=== PATIENT | female | born 1995 | race American Indian/Alaskan Native ===

== ENCOUNTER 2017-02-25 20:12 | Emergency (ER) | payer SELFPAY ==
[2017-02-25 21:38] LABS: Basophils % (Auto) 0.3 % (0.0-1.8); Eosinophils # (Auto) 0.5 K/mm3 (0.0-0.4); Eosinophils % (Auto) 5.9 % (0.0-4.3); Hematocrit 38.5 % (30.3-42.9); Hemoglobin 12.8 gm/dl (10.1-14.3); Lymphocytes # (Auto) 0.9 K/mm3 (1.2-5.4); Lymphocytes % (Auto) 10.7 % (13.4-35.0); Mean Corpuscular HGB Conc 33 % (30-34); Mean Corpuscular Hemoglobin 28 pg (28-32); Mean Corpuscular Volume 85 fl (79-97); Monocytes % (Auto) 11.1 % (0.0-7.3); Platelet Count 197 K/mm3 (140-440); Red Blood Count 4.52 M/mm3 (3.65-5.03); Red Cell Distribution Width 13.9 % (13.2-15.2)
[2017-02-25 21:58] LABS: BUN/Creatinine Ratio 12; Blood Urea Nitrogen 7 mg/dL (7-17); Calcium 9.4 mg/dL (8.4-10.2); Hemolysis Index 11
--- NOTE | 2017-02-25 23:14 | XRay Report ---
FINAL REPORT EXAM: XR CHEST ROUTINE 2V HISTORY: Shortness of breath TECHNIQUE: 2 views of the chest. PRIORS: None. FINDINGS: The cardiomediastinal silhouette appears normal. The lungs are clear. There is right convex scoliosis centered at T11. IMPRESSION: No evidence of acute cardiopulmonary disease
--- NOTE | 2017-02-26 05:55 | Emergency Department Report ---
ED General Adult HPI - General Chief complaint: Upper Respiratory Infection Stated complaint: COLD SX Time Seen by Provider: 02/26/17 05:34 Source: patient Mode of arrival: Ambulatory Limitations: No Limitations - History of Present Illness Initial comments: Patient here with nonproductive cough and clear rhinorrhea and sore throat anterior chest wall pain from coughing ,she's been sick for 3 days. with body aches, She denies numbness. She denies abdominal pain she denies headache or stiff neck. No photophobia no rash pain or swelling -: Gradual, days(s) Severity scale (0 -10): 4 Associated Symptoms: chest pain, cough. denies: diaphoresis, fever/chills, headaches, malaise, nausea/vomiting, rash, seizure, shortness of breath, syncope , weakness - Related Data Home Medications Medication Instructions Recorded Confirmed Last Taken Ibuprofen [Advil] 01/22/13 01/22/13 01/20/13 Previous Rx's Medication Instructions Recorded Last Taken Type ALBUTEROL Inhaler [ProAir HFA 2 puff IH QID PRN #1 inhalation 02/26/17 Unknown Rx Inhaler] Azithromycin [Zithromax TAB] 500 mg PO QDAY 5 Days tablet 02/26/17 Unknown Rx Ibuprofen [Motrin] 400 mg PO Q8H PRN #20 tablet 02/26/17 Unknown Rx Allergies Allergy/AdvReac Type Severity Reaction Status Date / Time No Known Allergies Allergy Verified 02/25/17 21:04 ED Review of Systems ROS: Stated complaint: COLD SX Other details as noted in HPI Comment: All other systems reviewed and negative Constitutional: denies: diaphoresis, fever, malaise Respiratory: cough. denies: orthopnea, shortness of breath, SOB with exertion, SOB at rest, stridor, wheezing Cardiovascular: denies: palpitations, dyspnea on exertion, orthopnea, edema, syncope, paroxysmal nocturnal dyspnea Gastrointestinal: denies: abdominal pain, nausea, vomiting, diarrhea, constipation, hematemesis, melena, hematochezia Genitourinary: denies: urgency, dysuria, frequency, hematuria, discharge, abnormal menses Musculoskeletal: myalgia. denies: joint swelling, arthralgia Neurological: denies: headache, weakness, numbness, paresthesias, confusion, abnormal gait, vertigo ED Past Medical Hx - Past Medical History Previous Medical History?: Yes Additional medical history: hypoglycemia - Surgical History Past Surgical History?: No - Social History Smoking Status: Never Smoker Substance Use Type: None - Medications Home Medications: Home Medications Medication Instructions Recorded Confirmed Last Taken Type Ibuprofen [Advil] 01/22/13 01/22/13 01/20/13 History ALBUTEROL Inhaler [ProAir HFA 2 puff IH QID PRN #1 inhalation 02/26/17 Unknown Rx Inhaler] Azithromycin [Zithromax TAB] 500 mg PO QDAY 5 Days tablet 02/26/17 Unknown Rx Ibuprofen [Motrin] 400 mg PO Q8H PRN #20 tablet 02/26/17 Unknown Rx ED Physical Exam - General Limitations: No Limitations General appearance: alert - Head Head exam: Present: atraumatic, normocephalic - Eye Eye exam: Present: normal appearance, PERRL, EOMI - ENT ENT exam: Present: mucous membranes moist, TM's normal bilaterally, other ( pharyngeal erythema no mass no exudate no stridor no drooling) - Neck Neck exam: Present: normal inspection. Absent: tenderness, meningismus - Respiratory Respiratory exam: Present: normal lung sounds bilaterally, chest wall tenderness. Absent: respiratory distress, wheezes, rales, rhonchi, stridor, accessory muscle use, decreased breath sounds, prolonged expiratory - Cardiovascular Cardiovascular Exam: Present: regular rate, normal rhythm, normal heart sounds. Absent: rubs, gallop - GI/Abdominal GI/Abdominal exam: Present: soft. Absent: distended, tenderness, guarding, rebound, hyperactive bowel sounds, mass, bruit, pulsatile mass - Extremities Exam Extremities exam: Present: normal inspection, normal capillary refill. Absent: pedal edema, joint swelling, calf tenderness - Back Exam Back exam: Absent: CVA tenderness (L), paraspinal tenderness, vertebral tenderness - Neurological Exam Neurological exam: Present: alert, oriented X3, CN II-XII intact, normal gait. Absent: motor sensory deficit - Psychiatric Psychiatric exam: Present: anxious. Absent: homicidal ideation, suicidal ideation - Skin Skin exam: Absent: cyanosis, diaphoretic, erythema, urticaria, vesicles, petechiae, pallor ED Course Vital Signs 02/25/17 02/26/17 02/26/17 21:04 02:14 02:19 Temperature 98.7 F 100.2 F H Pulse Rate 80 98 H 90 Respiratory 16 16 Rate Blood Pressure 122/66 112/71 Blood Pressure 112/71 [Right] O2 Sat by Pulse 95 100 100 Oximetry 02/26/17 02:20 Temperature Pulse Rate Respiratory 16 Rate Blood Pressure Blood Pressure [Right] O2 Sat by Pulse 100 Oximetry ED Medical Decision Making - Lab Data Result diagrams: 02/25/17 21:27 02/25/17 21:27 - EKG Data -: EKG Interpreted by Me EKG shows normal: sinus rhythm - EKG Data 02/26/17 05:56 no acute ischemic changes - Radiology Data Radiology results: report reviewed - Medical Decision Making Patient is supple neck negative chest x-ray with nonproductive cough with some chest wall pain from cough. There is no leg swellingno homans, patient will be placed on antibiotics and an inhaler was something for pain. flu swab Was negative chest x-rays negative EKG shows no acute ischemic change, hr is nl, mild low grade temp, no gu or gi or urinary c/o, no missed menses, no acute abd at this time, nl bp, no evidence for pe or dvt or other more emergent process is identified at this time, pt stable for outpt f/u, supplen rosie no santiago, pt is flu neg, sx x 3 days and no comorbitiies, tamiflu not felt to be useful for ssx prsent at this time Critical care attestation.: If time is entered above; I have spent that time in minutes in the direct care of this critically ill patient, excluding procedure time. ED Disposition Clinical Impression: Bronchitis, Atypical chest pain Disposition: TO HOME OR SELFCARE Is pt being admited?: No Condition: Stable Instructions: Chronic Bronchitis (ED), Chest Pain (ED), Acute Bronchitis (ED) Additional Instructions: Return if new or alarming symptoms see the doctor listed in 2 days Prescriptions: ALBUTEROL Inhaler [ProAir HFA Inhaler] 2 puff IH QID PRN #1 inhalation PRN Reason: Shortness Of Breath Azithromycin [Zithromax TAB] 500 mg PO QDAY 5 Days tablet Ibuprofen [Motrin] 400 mg PO Q8H PRN #20 tablet PRN Reason: Pain Referrals: AKILA LARA MD [Primary Care Provider] - 3-5 Days Time of Disposition: 06:04
[2017-02-26 06:21] VITALS: BP 104/71
== END 2017-02-26 06:20 | disposition home or self-care (01) ==
LOC: ED 20:12
DX: J40 Bronchitis, not specified as acute or chronic (principal); R07.89 Other chest pain
CPT/HCPCS: 36415; 71046; 80048; 85025; 87400; 93005; 93010